=== PATIENT | male | born 1950 | race Caucasian/White ===

== ENCOUNTER 2019-01-27 14:18 | Inpatient (IN) ==
[2019-01-27 15:44] LABS: BASO% 0.2 % (0.0-0.8); EOS% 1.6 % (0.0-10.0); HEMATOCRIT 38.7 % (42.0-52.0); HEMOGLOBIN 13.8 g/dL (14.0-18.0); IMM GRAN% 0.3 % (0.0-0.5); LYMPH# 1.48 X1000 (1.2-3.4); LYMPH% 13.6 % (20.5-51.1); MCHC 35.7 g/dL (33-37); MCV 89.8 FL (81-99); MONO% 6.5 % (1.7-9.3); NEUT# 8.49 X1000 (1.4-6.5); NEUT% 77.8 % (42.2-75.2); PLT 223 X1000 (130-400); RBC 4.31 XMIL (4.7-6.1); RDW 13.1 % (11.5-14.5)
[2019-01-27 15:45] LABS: BASO# 0.02 X1000 (0.0-0.2); EOS# 0.17 X1000 (0.0-0.7); IMM GRAN# 0.03 X1000 (0.0-0.04); MONO# 0.71 X1000 (0.11-0.59)
[2019-01-27 16:16] LABS: ALBUMIN 4.1 g/dL (3.5-5.0); CALCIUM 7.6 mg/dL (8.8-10.2); CREATININE 7.3 mg/dL (0.7-1.2); POTASSIUM 4.7 mmol/L (3.5-5.1); TOTAL BILIRUBIN 0.8 mg/dL (0.20-1.00); TOTAL PROTEIN 7.3 g/dL (6.3-8.3)
--- NOTE | 2019-01-27 16:17 | Diag Imaging Result Doc PS360 ---
EXAM: FLAT/UPRIGHT ABD/1 VIEW CHEST - 01/27/2019 HISTORY: abd pain TECHNIQUE: Supine and upright abdomen and one view chest COMPARISON: 12/06/2017 one view chest FINDINGS: The bowel gas pattern is unremarkable. There is no free air identified. There are surgical clips at the right upper and left upper quadrants. Upright chest shows normal heart size. There is some tortuosity of the thoracic aorta similar to prior. There is mild linear scarring at the left base. Lungs appear clear of acute changes. There is no pleural effusion or pneumothorax identified. IMPRESSION: Unremarkable bowel gas pattern. No evidence of acute cardiopulmonary disease. Electronically signed by Ian Glaser 01/27/2019 4:15 PM
[2019-01-27 16:55] LABS: BILIRUBIN URINE 1+ (NEGATIVE); BLOOD URINE 1+ (NEGATIVE); CLARITY CLEAR (CLEAR); COLOR YELLOW; GLUCOSE URINE NEGATIVE (NEGATIVE); KETONE URINE TRACE mg/dL (NEGATIVE); LEUKOCYTES URINE TRACE (NEGATIVE); NITRITE URINE NEGATIVE (NEGATIVE); PROTEIN URINE 1+(30 mg/dL) mg/dL (NEGATIVE); UROBILINOGEN URINE NORMAL
[2019-01-27 16:58] LABS: URINE BACTERIA 1+ /HFP; URINE EPITHELIAL CELLS >10 /HPF (<10)
[2019-01-27 16:59] LABS: URINE CAST NONE SEEN /LPF; URINE CRYSTAL URIC ACID PRESENT /HPF; URINE SOURCE CLEAN CATCH; URINE YEAST NONE SEEN /HPF
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
[2019-01-27 18:07] LABS: PHOSPHORUS 6.1 mg/dL (2.7-4.5); URIC ACID 14.5 mg/dL (3.4-7.0)
[2019-01-27] MEDS ORDERED: NS 1,000 ML IV ONE (18:44)
[2019-01-27] MEDS ORDERED: ZOFRAN IV PRN (18:49)
[2019-01-27] MEDS ORDERED: TYLENOL PO PRN (18:49)
[2019-01-27] MEDS: NS 1,000 ML IV SCH (19:37)
[2019-01-27] MEDS: MAG-OX PO SCH (20:33)
[2019-01-28] MEDS: NS 1,000 ML IV SCH (03:16)
--- NOTE | 2019-01-28 03:49 | HISTORY AND PHYSICAL ---
CHIEF COMPLAINT: Abdominal pain, nausea and vomiting. HISTORY OF PRESENT ILLNESS: The patient is a 68-year-old male who presented to the ER with abdominal pain, nausea, vomiting. States he has been vomiting after he eats. Notes that he lives around [place], but refuses to go to [place] ER. He apparently was at [place] yesterday and left AMA. States he has a history of renal disease, but he does not believe the doctor that told him knew what he was talking about. ALLERGIES: Ibuprofen and Naprosyn causing itching. Muscle relaxers causing itching. MEDICATIONS: He has no current prescriptions for medications. PAST MEDICAL HISTORY: Significant for chronic back pain, hypertension, history of kidney disease, although patient states he does not believe it. Has had a cholecystectomy in the past. FAMILY HISTORY: Noncontributory. SOCIAL HISTORY: Patient is a former alcohol user. States he does not drink. He is a former smoker. States he does not smoke currently. REVIEW OF SYSTEMS: As noted above, positive nausea, vomiting, abdominal pain. Denies any hematochezia, melena, hematemesis. Denies any dysuria, urinary frequency, urgency. States he has been tired and fatigued. He has had frequent falls but denies any syncopal episodes. States he has just become weak and could not stand. Denies any chest pain, palpitations. Denies fevers, chills. Denies weight loss, weight gain. Denies any skin rashes, focalized numbness, tingling, or weakness. Denies headaches, chest pain, palpitations, shortness of breath or trouble breathing. PHYSICAL EXAMINATION: VITAL SIGNS: Reviewed. Temperature 97.4 degrees, pulse 73, respiratory 18, BP 119/62. GENERAL: Patient is awake, alert. Currently, he is in no respiratory distress. He is lying in the bed, very pleasant to talk with. HEENT: Normocephalic. NECK: Supple. CARDIOVASCULAR: Regular rate. No murmurs. CHEST: Clear and nonlabored. ABDOMEN: Soft, nondistended, nontender. EXTREMITIES: Moves all extremities. NEUROLOGIC: No focal changes. SKIN: Warm and dry. No rashes. ASSESSMENT: 1. Leukocytosis. White count at 10.9. 2. Hyponatremia at 133. 3. Stage 5 renal disease with BUN at 77, creatinine of 7.3. 4. Metabolic acidosis likely secondary to his renal failure. PLAN: We will admit patient to the hospital. IV fluids. Place him on sodium bicarbonate. We will continue to follow. We will get a renal ultrasound and we will follow his renal failure. cc: Juan Ramon Serna MD
[2019-01-28 07:08] LABS: HEMATOCRIT 36.6 % (42.0-52.0); HEMOGLOBIN 12.6 g/dL (14.0-18.0); MCH 31.2 PG (27-31); MCHC 34.4 g/dL (33-37); MCV 90.6 FL (81-99); MPV 10.2 FL (7.4-10.4); RBC 4.04 XMIL (4.7-6.1); RDW 12.9 % (11.5-14.5); WBC 6.33 X1000 (4.8-10.8)
[2019-01-28 08:08] LABS: ALBUMIN 3.5 g/dL (3.5-5.0); CALCIUM 7.5 mg/dL (8.8-10.2); CREATININE 2.8 mg/dL (0.7-1.2); MAGNESIUM 2.2 mg/dL (1.5-2.7); POTASSIUM 4.2 mmol/L (3.5-5.1); TOTAL BILIRUBIN 0.6 mg/dL (0.20-1.00); TOTAL PROTEIN 5.9 g/dL (6.3-8.3)
[2019-01-28] MEDS ORDERED: ZOFRAN IV PRN (08:52)
[2019-01-28] MEDS ORDERED: NS 1,000 ML IV SCH (08:53)
[2019-01-28] MEDS: MAG-OX PO SCH ×2 (09:38→20:08)
[2019-01-28] MEDS: ZOSYN 3.375 GM in NS 50 ML IV SCH ×3 (09:39→20:08)
--- NOTE | 2019-01-28 11:26 | Diag Imaging Result Doc PS360 ---
EXAM: US RENAL 2 (RETROPER) COMPLETE INDICATION: renal failure TECHNIQUE: COMPARISON: None. FINDINGS: There is a 3.4 cm cyst at the lower pole of the left kidney with a punctate peripheral calcification. The kidneys are grossly normal in echotexture, otherwise. No solid renal masses or hydronephrosis is appreciated. The right kidney measures 11.4 cm and the left kidney measures 11.8 cm in the greatest longitudinal axes. Right renal cortex measures 1.3 cm and the left renal cortex measures 1.4 cm in thickness. The urinary bladder is unremarkable. IMPRESSION: Minimally complex cyst at the lower pole of the left kidney with a small peripheral calcification. Unremarkable renal ultrasound, otherwise. Electronically signed by Tadeo Wolff 01/28/2019 11:24 AM
[2019-01-28] MEDS: TYLENOL PO PRN ×2 (14:24→20:08)
[2019-01-29] MEDS: ZOSYN 3.375 GM in NS 50 ML IV SCH ×4 (03:48→20:40)
[2019-01-29 04:25] LABS: HEMATOCRIT 34.7 % (42.0-52.0); MCH 31.1 PG (27-31); MCHC 34.6 g/dL (33-37); MCV 89.9 FL (81-99); MPV 10.2 FL (7.4-10.4); RBC 3.86 XMIL (4.7-6.1); RDW 12.8 % (11.5-14.5); WBC 5.19 X1000 (4.8-10.8)
[2019-01-29 05:05] LABS: AGAP 9; ALBUMIN 3.3 g/dL (3.5-5.0); ALKALINE PHOSPHATASE 43 U/L (32-122); BUN 26 mg/dL (8-22); CALCIUM 7.9 mg/dL (8.8-10.2); CHLORIDE 112 mmol/L (98-107); COSMO 284; CREATININE 1.1 mg/dL (0.7-1.2); ESTIMATED GFR > 60; GLUCOSE 104 mg/dL (70-104); GOT 31 U/L (10-34); GPT 17 U/L (10-44); MAGNESIUM 1.9 mg/dL (1.5-2.7); POTASSIUM 4.5 mmol/L (3.5-5.1); SODIUM 140 mmol/L (136-145); TCO2 20 mmol/L (25-35); TOTAL PROTEIN 5.7 g/dL (6.3-8.3)
[2019-01-29] MEDS: MAG-OX PO SCH ×2 (09:29→20:40)
[2019-01-29] MEDS: TYLENOL PO PRN ×2 (09:29→20:39)
--- NOTE | 2019-01-29 10:05 | PROGRESS NOTE ---
DATE: 01/27/2019 SUBJECTIVE: Patient notes overall he is feeling a lot better. Denies any chest pain, palpitations. States his abdominal pain is improved. Denies any nausea, vomiting currently. PHYSICAL EXAMINATION: Vital Signs: Reviewed. Temperature 98.3 degrees, pulse 67, respiratory 20, BP 122/52. General: Patient is awake, alert, currently in no distress. HEENT: Normocephalic. Neck: Supple. Cardiovascular: Regular rate. Chest: Clear, nonlabored. Abdomen: Soft, nondistended, nontender. Extremities: Moves all extremities. Neurologic: No changes. The patient is awake, alert, oriented. ASSESSMENT: 1. Acute on chronic renal failure. Creatinine is improved from 7.3 down to 2.5. Unclear of his baseline. 2. Hypocalcemia. 3. Hyperphosphatemia. 4. Gout with an elevated uric acid at 11.4 although he is currently asymptomatic. 5. Metabolic acidosis, likely renal tubular acidosis due to his kidney function. 6. Hyponatremia, resolved. PLAN: We will continue sodium bicarbonate twice daily. Continue IV fluids. Recheck his kidneys in the morning. Hopefully, he can discharge home tomorrow. cc: Juan Ramon Serna MD
[2019-01-29] MEDS ORDERED: VANCOMYCIN IV PER PHARMACY MISC SCH (12:00)
[2019-01-29] MEDS: VANCOMYCIN 2,000 MG in NS 500 ML IV SCH (12:53)
--- NOTE | 2019-01-29 20:42 | PROGRESS NOTE ---
DATE: 01/29/2019 SUBJECTIVE: The patient notes that he is feeling tremendously better. He is having no further syncopal type episodes. Denies any chest pain or palpitations. PHYSICAL EXAMINATION: Vital signs: Temperature 98, pulse 55, respiratory 20, BP 157/62. General: Patient is very pleasant. He is in no distress. HEENT: Normocephalic. Neck: Supple. Cardiovascular: Regular rate. No murmurs. Chest: Clear, nonlabored. Abdomen: Soft, nondistended. Extremities: Moves all extremities. ASSESSMENT: 1. Acute renal failure. Creatinine was 7.3 on admit. Currently is normal. 2. Hyponatremia, resolved. 3. Leukocytosis resolved. 4. Anemia of chronic disease. 5. Hypocalcemia, improved. 6. Hyperphosphatemia, resolved. 7. Gout with elevated uric acid. PLAN: We will continue patient in the hospital. His renal failure has resolved. The patient now admits that he was actually out in the heat for the past 2 days prior to coming to the hospital. He had not been drinking well. Denies any other symptoms. We will transition him back to the floor. Hopefully, he can discharge home tomorrow if symptoms continue to improve. cc: Juan Ramon Serna MD
[2019-01-30] MEDS: ZOSYN 3.375 GM in NS 50 ML IV SCH ×4 (02:25→21:27)
[2019-01-30] MEDS: PRILOSEC PO SCH (10:41)
[2019-01-30] MEDS: MAG-OX PO SCH ×2 (10:41→21:27)
[2019-01-30] MEDS: VANCOMYCIN 2,000 MG in NS 500 ML IV SCH (13:14)
--- NOTE | 2019-01-30 20:08 | PROGRESS NOTE ---
DATE: 01/30/2019 SUBJECTIVE: Patient notes that his left thumb is still bothersome. Denies any fevers, chills. Denies any chest pain or palpitations. PHYSICAL EXAMINATION: Temperature 98.7, pulse 59, respiratory rate 18, BP 155/73.General: The patient is awake, alert. He is in no distress. HEENT: Normocephalic. Neck: Supple. Cardiovascular: Regular rate. No murmurs. Chest: Clear, nonlabored. Abdomen: Soft, nondistended. Extremities: Moves all extremities. Skin: His left thumb sutures are still intact. He has no pus currently draining. He has less erythema today than he did yesterday when he was draining pus, and culture has been sent. It is currently growing gram-positive cocci. ASSESSMENT: 1. Gram-positive cocci cellulitis, left thumb. 2. Leukocytosis. cc: Juan Ramon Serna MD
[2019-01-31] MEDS: ZOSYN 3.375 GM in NS 50 ML IV SCH ×3 (03:54→16:41)
[2019-01-31 06:39] LABS: HEMATOCRIT 36.6 % (42.0-52.0); HEMOGLOBIN 12.9 g/dL (14.0-18.0); MCH 31.2 PG (27-31); MCHC 35.2 g/dL (33-37); MCV 88.4 FL (81-99); MPV 9.9 FL (7.4-10.4); RBC 4.14 XMIL (4.7-6.1); RDW 12.3 % (11.5-14.5); WBC 6.37 X1000 (4.8-10.8)
[2019-01-31 06:49] LABS: AGAP 9; ALBUMIN 3.5 g/dL (3.5-5.0); ALKALINE PHOSPHATASE 42 U/L (32-122); BUN 6 mg/dL (8-22); CALCIUM 8.3 mg/dL (8.8-10.2); CHLORIDE 105 mmol/L (98-107); COSMO 276; CREATININE 0.7 mg/dL (0.7-1.2); ESTIMATED GFR > 60; GLUCOSE 116 mg/dL (70-104); GOT 24 U/L (10-34); GPT 18 U/L (10-44); MAGNESIUM 1.4 mg/dL (1.5-2.7); POTASSIUM 4.2 mmol/L (3.5-5.1); SODIUM 139 mmol/L (136-145); TCO2 26 mmol/L (25-35); TOTAL PROTEIN 6.4 g/dL (6.3-8.3)
[2019-01-31] MEDS: MAG-OX PO SCH ×2 (08:00→20:07)
[2019-01-31] MEDS: PRILOSEC PO SCH (08:00)
[2019-01-31] MEDS ORDERED: MAGNESIUM SULFATE 2 GM/S.W.I. 2 GM/50 ML IVPB IV ONE (10:33)
[2019-01-31] MEDS ORDERED: DIPHENHYDRAMINE PO PRN (10:34)
[2019-01-31] MEDS ORDERED: NICODERM PATCH TD PRN (10:34)
[2019-01-31] MEDS ORDERED: ACETAMINOPHEN PO PRN (10:34)
[2019-01-31] MEDS: TOPROL XL PO SCH (11:45)
[2019-01-31] MEDS: VANCOMYCIN 2,000 MG in NS 500 ML IV SCH (14:03)
--- NOTE | 2019-01-31 17:00 | EKG Report ---
Test Performed on : 01/31/2019 4:30:51 PM Test Reason : arrythmia Blood Pressure : / mmHG Vent. Rate : 050 BPM Atrial Rate : 050 BPM P-R Int : 166 ms QRS Dur : 106 ms QT Int : 482 ms P-R-T Axes : 031 -35 157 degrees QTc Int : 439 ms Sinus bradycardia. Left axis deviation Inferior infarct , age undetermined Anteroseptal infarct , age undetermined T wave abnormality, consider lateral ischemia Abnormal ECG No previous ECGs available Confirmed by Richard Kidd MD ([id number]) on 02/03/2019 7:35:21 AM
--- NOTE | 2019-01-31 17:57 | PROGRESS NOTE ---
DATE: 01/31/2019 SUBJECTIVE: The patient looks well. His left thumb looks better. No major issues there. He seems to be doing okay from that standpoint. Subjectively, the patient has no major complaints. OBJECTIVE: Vital Signs: Blood pressure is 141/63, heart rate 60, respiratory rate 18, temperature 97.5 degrees 96% on room air. Cardiovascular: Regular rate and rhythm. Pulmonary: Bilateral breath sounds clear to auscultation. Gastrointestinal: Abdomen soft, nontender, nondistended. Bowel sounds are positive. LABORATORY DATA: Magnesium kidney stones 1.4. PROBLEM LIST: 1. Left methicillin-resistant Staphylococcus aureus positive cellulitis. He is currently on vancomycin. That seems to be sufficient. Based on sensitivities he can be discharged on doxycycline or Bactrim. I prefer doxycycline. 2. Ventricular rhythm maybe some nonsustained ventricular tachycardia versus atrial fibrillation with aberrancy. He is not usually on his Toprol, so I have resumed that. His magnesium was low. I have supplemented that. We will kind of watch him today and make sure no more episodes and see how he does tomorrow, but I anticipate discharge tomorrow if stable. DISPOSITION: Again, I anticipate discharge tomorrow if he is stable. cc: Ran Cortez MD
[2019-02-01 07:31] LABS: AGAP 5; BUN 7 mg/dL (8-22); CALCIUM 8.4 mg/dL (8.8-10.2); CHLORIDE 102 mmol/L (98-107); COSMO 266; CREATININE 0.7 mg/dL (0.7-1.2); ESTIMATED GFR > 60; GLUCOSE 99 mg/dL (70-104); MAGNESIUM 1.7 mg/dL (1.5-2.7); POTASSIUM 4.5 mmol/L (3.5-5.1); SODIUM 134 mmol/L (136-145); TCO2 27 mmol/L (25-35)
[2019-02-01] MEDS ORDERED: PRINIVIL PO SCH (09:00)
[2019-02-01] MEDS: MAG-OX PO SCH (10:33)
[2019-02-01] MEDS: TOPROL XL PO SCH (10:33)
[2019-02-01] MEDS: PRILOSEC PO SCH (10:33)
[2019-02-01] MEDS ORDERED: VANCOMYCIN 2,000 MG in NS 500 ML IV SCH (13:00)
[2019-02-01 16:13] VITALS: BP 158/79
--- NOTE | 2019-02-01 22:49 | ECHO REPORT ---
ORDER DATE: 01/31/2019 MEASUREMENTS: Septal thickness 1.1, left ventricular internal diameter in diastole 5.5, posterior wall thickness 1.1, left ventricular internal diameter in systole 4.0, left atrium 4.2. SUMMARY: 1. Fair quality study. 2. Moderately heavy fibrocalcific changes of the aortic valve demonstrated, with significantly reduced aortic valve leaflet mobility evident. Peak gradient across the aortic valve is 47 mmHg with a mean gradient of 28 mmHg. The calculated aortic valve area by Doppler is 0.6 to 0.7 cm2, suggesting severe aortic stenosis. Moderate mitral annular calcification is demonstrated. There is mild mitral regurgitation. Tricuspid and pulmonic valves are without evidence of structural abnormality. There is mild tricuspid regurgitation. The estimated systolic PA pressure by Doppler is 60 mmHg, suggesting moderate pulmonary hypertension. The aortic root is normal in size. 3. Normal left ventricular chamber size with borderline concentric left ventricular hypertrophy is demonstrated. Estimated left ventricular ejection fraction is approximately 35%, with akinesis of the mid to apical septum, mid to apical anteroseptal region, and very apex left ventricle. There is also hypokinesis of the apical lateral wall. The left atrium is mildly to moderately enlarged on 2-dimensional images. Doppler suggests grade 1 left ventricular diastolic dysfunction. The right atrium and right ventricle are normal in size, with grossly preserved right ventricular systolic function. 4. No pericardial effusion. 5. Appearance of the inferior vena cava suggests normal central venous pressure. CONCLUSIONS: 1. Severe calcific aortic stenosis. 2. Moderate mitral annular calcification with mild mitral regurgitation. 3. Mild tricuspid regurgitation with moderate pulmonary hypertension by Doppler. 4. Borderline concentric left ventricular hypertrophy with estimated left ventricular ejection fraction of approximately 35%, in the setting of akinesis of the mid to apical septum, mid to apical anteroseptal region and very apex, and hypokinesis of the lateral apex. 5. Mild to moderate left atrial enlargement. 6. Grade 1 left ventricular diastolic dysfunction suggested. cc: MD Ran Darnell MD
--- NOTE | 2019-02-02 10:31 | DISCHARGE SUMMARY ---
ADMISSION DATE: 01/27/2019 DISCHARGE DATE: 02/01/2019 DISCHARGE DIAGNOSES: 1. Cellulitis of the thumb I believe on the left hand positive for MRSA. 2. Arrhythmia with history of coronary artery disease. 3. MRSA cellulitis of the left thumb. 4. Arrhythmia. 5. Hypertension. 6. Hyponatremia. 7. Acute kidney injury which has now resolved and back to normal. 8. Type 2 diabetes. HISTORY: Briefly, this is a 68-year-old male presenting with nausea and vomiting. Reportedly, he had been working in the heat. 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 He came in with a sodium level of 133, BUN and creatinine of 77 and 7.3. He was placed on fluids and felt better. Creatinine improved after treatment. He does have gout. It looks like he had an elevated uric acid level, and he continued to improve. He did develop cellulitis of his thumb, which ended up growing out MRSA which was sensitive to gentamicin, tetracycline, Bactrim and vancomycin. I think he had been on vancomycin. In any case, he slowly clinically improved, and he was able to be discharged in stable condition. DISCHARGE MEDICATIONS: 1. Gabapentin 300 b.i.d. 2. Protonix 20 daily. 3. Lisinopril 20 daily. 4. Toprol-XL 25 daily. 5. Vitamin D2 32643 units as directed. 6. Doxycycline 100 p.o. b.i.d. for 10 days and then Percocet. DISCHARGE INSTRUCTIONS: He will need follow up with his PCP in 1 to 2 weeks, that is Dr. Salvatore Garzon. Stay well hydrated. Return for worsening pain or swelling of his thumb. cc: Ran Cortez MD
== END 2019-02-01 18:00 | disposition home or self-care (01) | DRG 683 ==
LOC: SUPCPDRO → P.ED 14:18 → P.MEDSURG 20:55 → SUATTDRO 20:55 → P.MEDSURG 21:21 → P.ICU 01-28 18:29 → P.MEDSURG 01-29 18:02
PROVIDERS: ATTEND Internal Medicine
CPT/HCPCS: 36415; 74022; 76770; 80048; 80053; 80202; 81001; 82150; 82948; 83690; 83735; 84100; 84443; 84550; 85025; 85027; 87070; 87077; 87088; 87186; 93005; 93010; 93306; 96360; 96361; 99285; A9270; J2405; J2543; J3370; J3475; J7030; J7040; XXXXX